=== PATIENT | male | born 1940 | race Caucasian/White ===

== ENCOUNTER 2017-08-06 17:06 | Observation (INO) | payer MEDICARE ==
[2017-08-06] MEDS ORDERED: Morphine 2 MG/ML Syringe IVPUSH PRN (19:03)
[2017-08-06] MEDS ORDERED: Ondansetron 4 MG/2 ML SDV IV PRN (19:03)
[2017-08-06] MEDS ORDERED: Docusate Sodium 100 MG Cap PO PRN (19:03)
--- NOTE | 2017-08-06 19:03 | EDM.PDOC ---
ED HPI GENERAL MEDICAL PROBLEM - General Stated Complaint: chest pain Time Seen by Provider: 08/06/17 17:06 Source of Information: Reports: Patient, Family History Limitations: Reports: No Limitations - History of Present Illness INITIAL COMMENTS - FREE TEXT/NARRATIVE: 77 years old w m with h/o CAD, had at 3 am cp, lasting a few min. Pt was pain fee till 2 pm, he went to the clinic and was noticed to have a SBP of 180 and a pulse ox or 81 on RA. He was give a nitro and O2 after which his symptoms normalized. His sBP was then 136and his O2 95% (pulse ox) on RA. His ECG did not show any acute ST/T wave changes and Troponin was 0.01. Pt was transfered to the ed for further care. On arrival, pt's BP was 136/76 puls 53 and pulse ox 100% on RA. Pt was entirely pain free while here in the ed. 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 Family was present. 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 [employer]ER: Reports: Aspirin, Nitroglycerin - Related Data Allergies Allergy/AdvReac Type Severity Reaction Status Date / Time No Known Allergies Allergy Verified 06/10/13 19:20 Home Meds: Home Meds Aspirin 81 mg PO DAILY 06/10/13 [History] Cholecalciferol (Vitamin D3) [Vitamin D3] 1,000 unit PO DAILY 05/12/15 [History] Clopidogrel [Plavix] 75 mg PO DAILY 05/12/15 [History] Cyanocobalamin (Vitamin B12) [Vitamin B12] 1,000 mcg PO DAILY 05/12/15 [History] Gluc 2KCl/Chondr/Lucia Hy/Hy Ac [Glucosamine & Chondroitin Cap] 1 each PO DAILY 05/12/15 [History] Indomethacin [Indocin] 50 mg PO DAILY PRN 05/12/15 [History] Multivitamin with Minerals [Multivitamins with Minerals] 1 each PO DAILY [History] Nitroglycerin [Nitrostat] 0.4 mg SL ASDIRECTED 05/12/15 [History] Lisinopril [Prinivil] 20 mg PO DAILY 08/06/17 [History] Omeprazole 20 mg PO DAILY 08/06/17 [History] Social & Family History - Tobacco Use Smoking Status *Q: Former Smoker Years of Tobacco use: 25 Used Tobacco, but Quit: Yes - Alcohol Use Days Per Week of Alcohol Use: 1 Number of Drinks Per Day: 1 Total Drinks Per Week: 1 - Recreational Drug Use Recreational Drug Use: No ED ROS GENERAL - Review of Systems Review Of Systems: See Below Constitutional: Reports: No Symptoms HEENT: Reports: No Symptoms Respiratory: Reports: No Symptoms Cardiovascular: Reports: No Symptoms Endocrine: Reports: No Symptoms GI/Abdominal: Reports: No Symptoms : Reports: No Symptoms Musculoskeletal: Reports: No Symptoms Skin: Reports: No Symptoms Neurological: Reports: No Symptoms Psychiatric: Reports: No Symptoms Hematologic/Lymphatic: Reports: No Symptoms Immunologic: Reports: No Symptoms ED EXAM, GENERAL - Physical Exam Exam: See Below Exam Limited By: No Limitations General Appearance: Alert, WD/WN, No Apparent Distress Eye Exam: Bilateral Eye: Normal Inspection Ears: Normal External Exam Ear Exam: Bilateral Ear: Auricle Normal Nose: Normal Inspection Throat/Mouth: Normal Inspection Head: Atraumatic, Normocephalic Neck: Normal Inspection Respiratory/Chest: No Respiratory Distress Cardiovascular: Normal Peripheral Pulses, Regular Rate, Rhythm, No Edema GI/Abdominal: Normal Bowel Sounds, Soft, Non-Tender (Male) Exam: Deferred Rectal (Males) Exam: Deferred Back Exam: Normal Inspection, Full Range of Motion Extremities: Normal Inspection, Normal Range of Motion, Non-Tender, No Pedal Edema Neurological: Alert, Oriented, CN II-XII Intact, Normal Cognition, Normal Gait Psychiatric: Normal Affect, Normal Mood Skin Exam: Warm, Dry, Intact, Normal Color, No Rash Lymphatic: No Adenopathy EKG INTERPRETATION EKG Date: 08/06/17 Time: 15:55 Rhythm: NSR Rate (Beats/Min): 59 [place]: Normal P-Wave: Present QRS: LBBB ST-T: Normal QT: Normal Comparison: NA - No Prior EKG Course - Vital Signs Text/Narrative:: 77 years old w m with h/o CAD, had at 3 am cp, lasting a few min. Pt was pain fee till 2 pm, he went to the clinic and was noticed to have a SBP of 180 and a pulse ox or 81 on RA. He was give a nitro and O2 after which his symptoms normalized. His sBP was then 136and his O2 95% (pulse ox) on RA. His ECG did not show any acute ST/T wave changes and Troponin was 0.01. Pt was transfered to the ed for further care. On arrival, pt's BP was 136/76 puls 53 and pulse ox 100% on RA. Pt was entirely pain free while here in the ed. 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 Family was present. PE: WNWD WF in no discomfort Labs: cbc bmp including troponin were nl at 1559 D Dimer was 735 Imaging: CXR NAD Angio chest: No Pulmonary emboli. 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 Pt has at 10.30 am an appointment with his pullboat engineer in [place]. Last Recorded V/S: Last Vital Signs Temp 36.6 C 08/07/17 00:00 Pulse 58 L 08/07/17 00:00 Resp 16 08/07/17 00:00 BP 146/69 H 08/07/17 00:00 Pulse Ox 97 08/07/17 00:00 - Orders/Labs/Meds Orders: Active Orders 24 hr Category Date Time Status Patient Status [ADT] Routine ADT 08/06/17 19:03 Active Cardiac Monitoring [RC] .As Directed Care 08/06/17 19:07 Active EKG Documentation Completion [RC] ASDIRECTED Care 08/06/17 19:11 Active Oxygen Therapy [RC] PRN Care 08/06/17 19:03 Active Up With Assistance [RC] ASDIRECTED Care 08/06/17 19:03 Active VTE/DVT Education [RC] Per Unit Routine Care 08/06/17 19:03 Active Vital Signs [RC] 00,04,08,12,16,20 Care 08/06/17 19:03 Active Heart Healthy Diet [DIET] Diet 08/06/17 Breakfast Ordered TROPONIN I [CHEM] Stat Lab 08/07/17 03:05 Received Docusate Sodium [Colace] Med 08/06/17 19:03 Active 100 mg PO BID PRN Morphine Med 08/06/17 19:03 Active 2 mg IVPUSH Q2H PRN Ondansetron [Zofran] Med 08/06/17 19:03 Active 4 mg IV Q4H PRN Sodium Chloride 0.9% [Saline Flush] Med 08/06/17 19:03 Active 10 ml FLUSH ASDIRECTED PRN Peripheral IV Insertion Adult [OM.PC] Routine Oth 08/06/17 19:03 Ordered Resuscitation Status Routine Resus Stat 08/06/17 19:03 Ordered EKG 12 Lead [EK] Routine Ther 08/06/17 21:00 Ordered EKG 12 Lead [EK] Urgent Ther 08/07/17 03:00 Ordered Medication Orders Docusate Sodium (Colace) 100 mg PO BID PRN PRN Reason: Constipation Influenza Virus Vaccine (Fluzone Quad ) 60 mcg IM .ONCE ONE Stop: 08/07/17 10:01 Morphine Sulfate (Morphine) 2 mg IVPUSH Q2H PRN PRN Reason: Pain (severe 7-10) Ondansetron HCl (Zofran) 4 mg IV Q4H PRN PRN Reason: Nausea/Vomiting Sodium Chloride (Saline Flush) 10 ml FLUSH ASDIRECTED PRN PRN Reason: Keep Vein Open Last Admin: 08/07/17 01:33 Dose: 10 ml Admin: 08/06/17 20:29 Dose: 10 ml Meds: Medications Generic Name Dose Route Start Last Admin Trade Name Freq PRN Reason Stop Dose Admin Docusate Sodium 100 mg 08/06/17 19:03 Colace PO BID PRN Constipation Influenza Virus Vaccine 60 mcg 08/07/17 10:00 Fluzone Quad IM 08/07/17 10:01 .ONCE ONE Morphine Sulfate 2 mg 08/06/17 19:03 Morphine IVPUSH Q2H PRN Pain (severe 7-10) Ondansetron HCl 4 mg 08/06/17 19:03 Zofran IV Q4H PRN Nausea/Vomiting Sodium Chloride 10 ml 08/06/17 19:03 08/07/17 01:33 Saline Flush FLUSH 10 ml ASDIRECTED PRN Administration Keep Vein Open Discontinued Medications Generic Name Dose Route Start Last Admin Trade Name Freq PRN Reason Stop Dose Admin Influenza Virus Vaccine 1 each 08/06/17 21:39 Pharmacy To Dose - Influenza Vaccine IM 08/06/17 21:40 ONETIME ONE Iopamidol 75 ml 08/07/17 01:56 08/07/17 02:17 Isovue-370 (76%) IV 08/07/17 01:57 75 ml ONETIME ONE Administration Departure - Departure Time of Disposition: 19:02 Disposition: Refer to Observation Condition: Fair Clinical Impression: Chest pain - My Orders Last 24 Hours: My Active Orders 08/06/17 19:03 Patient Status [ADT] Routine Oxygen Therapy [RC] PRN Up With Assistance [RC] ASDIRECTED VTE/DVT Education [RC] Per Unit Routine Vital Signs [RC] 00,04,08,12,16,20 Docusate Sodium [Colace] 100 mg PO BID PRN Morphine 2 mg IVPUSH Q2H PRN Ondansetron [Zofran] 4 mg IV Q4H PRN Sodium Chloride 0.9% [Saline Flush] 10 ml FLUSH ASDIRECTED PRN Peripheral IV Insertion Adult [OM.PC] Routine Resuscitation Status Routine 08/06/17 19:07 Cardiac Monitoring [RC] .As Directed 08/06/17 19:11 EKG Documentation Completion [RC] ASDIRECTED 08/06/17 21:00 EKG 12 Lead [EK] Routine 08/06/17 Breakfast Heart Healthy Diet [DIET] 08/07/17 03:00 EKG 12 Lead [EK] Urgent 08/07/17 03:05 TROPONIN I [CHEM] Stat - Assessment/Plan Last 24 Hours: My Active Orders 08/06/17 19:03 Patient Status [ADT] Routine Oxygen Therapy [RC] PRN Up With Assistance [RC] ASDIRECTED VTE/DVT Education [RC] Per Unit Routine Vital Signs [RC] 00,04,08,12,16,20 Docusate Sodium [Colace] 100 mg PO BID PRN Morphine 2 mg IVPUSH Q2H PRN Ondansetron [Zofran] 4 mg IV Q4H PRN Sodium Chloride 0.9% [Saline Flush] 10 ml FLUSH ASDIRECTED PRN Peripheral IV Insertion Adult [OM.PC] Routine Resuscitation Status Routine 08/06/17 19:07 Cardiac Monitoring [RC] .As Directed 08/06/17 19:11 EKG Documentation Completion [RC] ASDIRECTED 08/06/17 21:00 EKG 12 Lead [EK] Routine 08/06/17 Breakfast Heart Healthy Diet [DIET] 08/07/17 03:00 EKG 12 Lead [EK] Urgent 08/07/17 03:05 TROPONIN I [CHEM] Stat
[2017-08-06] MEDS: Sodium Chloride 0.9% 10 ML Syringe FLUSH PRN (20:29)
[2017-08-07] MEDS: Sodium Chloride 0.9% 10 ML Syringe FLUSH PRN (01:33)
[2017-08-07] MEDS ORDERED: Iopamidol 755 Mg/ML 75 ML Bottle IV ONE (01:56)
--- NOTE | 2017-08-07 08:21 | PCM.SN ---
- Free Text/Narrative Note: Patient is O2 sats all night were normal. Blood pressure was mildly high but nothing remarkable. No chest pain and serial enzymes 2 were negative. Discharged home in the he has a cardiology appointment today.
--- NOTE | 2017-08-07 08:21 | PCM.HP ---
H&P History of Present Illness - General Date of Service: 08/07/17 Source of Information: Patient History Limitations: Reports: No Limitations - History of Present Illness Initial Comments - Free Text/Narative: This is a 76-year-old male patient has been having elevated blood pressure for the last 2 weeks. He states he increase his blood pressure to twice a day. He says that was okay by Dr. Wu. He was seen in the clinic in the checked his O2 sat which was 80%. He was sent over to the hospital. He stated he had a little chest pain in the morning that was down left lower ribs that was sharp and intermittent. Did not radiate anywhere. Doesn't history coronary artery disease. Does have appointment with cardiology today. He had 2 enzymes that were negative. Overnight he had no symptoms. No shortness of breath. He does state that for the last 5 months when he walks but 100 [place] short of breath this done. Denies chest pain. CT chest last night was negative for pneumonia or PE. She does state these haven't some leg swelling bilaterally. He denies orthopnea or PND - Related Data Allergies/Adverse Reactions: Allergies Allergy/AdvReac Type Severity Reaction Status Date / Time No Known Allergies Allergy Verified 06/10/13 19:20 Home Medications: Home Meds Aspirin 81 mg PO DAILY 06/10/13 [History] Cholecalciferol (Vitamin D3) [Vitamin D3] 1,000 unit PO DAILY 05/12/15 [History] Clopidogrel [Plavix] 75 mg PO DAILY 05/12/15 [History] Cyanocobalamin (Vitamin B12) [Vitamin B12] 1,000 mcg PO DAILY 05/12/15 [History] Gluc 2KCl/Chondr/Lucia Hy/Hy Ac [Glucosamine & Chondroitin Cap] 1 each PO DAILY 05/12/15 [History] Indomethacin [Indocin] 50 mg PO DAILY PRN 05/12/15 [History] Multivitamin with Minerals [Multivitamins with Minerals] 1 each PO DAILY [History] Nitroglycerin [Nitrostat] 0.4 mg SL ASDIRECTED 05/12/15 [History] Lisinopril [Prinivil] 20 mg PO DAILY 08/06/17 [History] Omeprazole 20 mg PO DAILY 08/06/17 [History] Past Medical History HEENT History: Reports: Hard of Hearing, Impaired Vision Other HEENT History: yaneli hearing aid Cardiovascular History: Reports: Hypertension, SOB on Exertion, Stents Respiratory History: Reports: Intubation, Difficult, SOB Gastrointestinal History: Reports: Other (See Below) Other Gastrointestinal History: had hemorrhoid surgery Genitourinary History: Reports: None Musculoskeletal History: Reports: Arthritis, Back Pain, Chronic, Neck Pain, Chronic Neurological History: Reports: None Psychiatric History: Reports: None Endocrine/Metabolic History: Reports: None Hematologic History: Reports: None Immunologic History: Reports: None Oncologic (Cancer) History: Reports: None Dermatologic History: Reports: None - Infectious Disease History Infectious Disease History: Reports: Chicken Pox, Measles, Mumps, Shingles - Past Surgical History Head Surgeries/Procedures: Reports: None HEENT Surgical History: Reports: None Cardiovascular Surgical History: Reports: Coronary Artery Stent, Other (See Below) Other Cardiovascular Surgeries/Procedures: jun 2013 stents Respiratory Surgical History: Reports: None GI Surgical History: Reports: None Male Surgical History: Reports: None Endocrine Surgical History: Reports: None Neurological Surgical History: Reports: None Musculoskeletal Surgical History: Reports: Knee Replacement, Shoulder Surgery, Other (See Below) Other Musculoskeletal Surgeries/Procedures:: Rt knee replacement, left shoulder surgery Oncologic Surgical History: Reports: None Dermatological Surgical History: Reports: None Social & Family History - Family History Family Medical History: Noncontributory - Tobacco Use Smoking Status *Q: Former Smoker Years of Tobacco use: 25 Used Tobacco, but Quit: Yes Month Tobacco Last Used: february 1982 Second Hand Smoke Exposure: No - Caffeine Use Caffeine Use: Reports: Coffee, Tea - Alcohol Use Days Per Week of Alcohol Use: 1 Number of Drinks Per Day: 1 Total Drinks Per Week: 1 Date of Last Drink: 08/03/17 Time of Last Drink: 20:00 - Recreational Drug Use Recreational Drug Use: No H&P Review of Systems - Review of Systems: Review Of Systems: See Below General: Reports: No Symptoms HEENT: Reports: No Symptoms Pulmonary: Reports: No Symptoms Cardiovascular: Reports: Chest Pain Gastrointestinal: Reports: No Symptoms Genitourinary: Reports: No Symptoms Musculoskeletal: Reports: No Symptoms Skin: Reports: No Symptoms Psychiatric: Reports: No Symptoms Neurological: Reports: No Symptoms Hematologic/Lymphatic: Reports: No Symptoms Immunologic: Reports: No Symptoms Exam - Exam Exam: See Below - Vital Signs Vital Signs: Last Vital Signs Temp 97.4 F 08/07/17 04:00 Pulse 62 08/07/17 04:00 Resp 16 08/07/17 04:00 BP 142/75 H 08/07/17 04:00 Pulse Ox 97 08/07/17 04:00 Weight: 200 lb 9.6 oz - Exam Quality Assessment: No: Supplemental Oxygen General: Alert, Oriented, Cooperative HEENT: Hearing Intact, Mucosa Moist & [place], Posterior Pharynx Clear, TMs Clear Neck: Supple, Trachea Midline, Carotid Bruit. No: JVD Lungs: Clear to Auscultation, Normal Respiratory Effort. No: Crackles, Rales, Rhonchi Cardiovascular: Regular Rate, Regular Rhythm, Normal S1, Normal S2. No: Systolic Murmur, Diastolic Murmur GI/Abdominal Exam: Normal Bowel Sounds, Soft, Non-Tender, No Organomegaly, No Distention, No Abnormal Bruit, No Mass Back Exam: Normal Inspection Extremities: Non-Tender, No Pedal Edema Skin: Warm, Dry, Intact Neurological: Strength Equal Bilateral, Normal Speech, Normal Tone Neuro Extensive - Mental Status: Alert, Oriented x3, Normal Mood/Affect - Patient Data Lab Results Last 24 hrs: Laboratory Results - last 24 hr 08/06/17 08/06/17 08/07/17 Range/Units 21:08 21:08 03:05 D-Dimer, Quantitative 731 H (100-400) ng/mL Troponin I < 0.017 L < 0.017 L (<0.017-0.056) ng/mL EKG INTERPRETATION EKG Interpretation Comments: Left bundle branch block. *Q Meaningful Use (ADM) - VTE *Q VTE Criteria *Q: - Stroke *Q Stroke Criteria *Q: - AMI *Q AMI Criteria *Q: - Problem List (1) Hypertension SNOMED Code(s): 98232766 ICD Code: I10 - ESSENTIAL (PRIMARY) HYPERTENSION Status: Acute Current Visit: Yes (2) Chest pain SNOMED Code(s): 82164017 ICD Code: R07.9 - CHEST PAIN, UNSPECIFIED Status: Acute Current Visit: Yes Problem List Initiated/Reviewed/Updated: Yes Orders Last 24hrs: Active Orders 24 hr Category Date Time Status Ang Chest [CT] Routine Exams 08/07/17 01:06 Taken FLU Vacc [id number] 36Mos UP/PF [Fluzone Quad [id number]] Med 08/07/17 10:00 Once 60 mcg IM .ONCE ONE Medication Orders Docusate Sodium (Colace) 100 mg PO BID PRN PRN Reason: Constipation Influenza Virus Vaccine (Fluzone Quad ) 60 mcg IM .ONCE ONE Stop: 08/07/17 10:01 Morphine Sulfate (Morphine) 2 mg IVPUSH Q2H PRN PRN Reason: Pain (severe 7-10) Ondansetron HCl (Zofran) 4 mg IV Q4H PRN PRN Reason: Nausea/Vomiting Sodium Chloride (Saline Flush) 10 ml FLUSH ASDIRECTED PRN PRN Reason: Keep Vein Open Last Admin: 08/07/17 01:33 Dose: 10 ml Admin: 08/06/17 20:29 Dose: 10 ml Assessment/Plan Comment:: 1. Patient was admitted for observation. 2. Regular home medications. 3. Monitor oxygen. 4. Up ad alina. 5. Serial enzymes. 6. CT of the chest was unremarkable.
--- NOTE | 2017-08-07 08:25 | PCM.DCSUM1 ---
Discharge Summary - Hospital Course HPI Initial Comments: Hospital course-patient was admitted overnight for observation. His O2 sats remained in the mid 90s on no oxygen. Blood pressures were mildly high but nothing significant. He had no episodes of chest pain. His enzymes [address] the chest showed no PE or pneumonia. Patient states she's been having shortness of breath with exertion about 100 yards. He has a cardiology appointment today. He has a history coronary artery disease with a history of stent 4 years ago. Have him follow-up with cardiology today. Brief History: This is a 76-year-old male patient has been having elevated blood pressure for the last 2 weeks. He states he increase his blood pressure to twice a day. He says that was okay by Dr. Wu. He was seen in the clinic in the checked his O2 sat which was 80%. He was sent over to the hospital. He stated he had a little chest pain in the morning that was down left lower ribs that was sharp and intermittent. Did not radiate anywhere. Doesn 't history coronary artery disease. Does have appointment with cardiology today. He had 2 enzymes that were negative. Overnight he had no symptoms. No shortness of breath. He does state that for the last 5 months when he walks but 100 [place] short of breath this done. Denies chest pain. CT chest last night was negative for pneumonia or PE. She does state these haven't some leg swelling bilaterally. He denies orthopnea or PND - Discharge Data Discharge Date: 08/07/17 Discharge Disposition: Home, Self-Care 01 Condition: Fair - Discharge Diagnosis/Problem(s) (1) Hypertension SNOMED Code(s): 68026324 ICD Code: I10 - ESSENTIAL (PRIMARY) HYPERTENSION Status: Acute Current Visit: Yes (2) Chest pain SNOMED Code(s): 11284036 ICD Code: R07.9 - CHEST PAIN, UNSPECIFIED Status: Acute Current Visit: Yes - Patient Instructions Diet: Heart Healthy Diet Activity: As Tolerated Driving: May Drive Today Showering/Bathing: May Shower Other/Special Instructions: 1. Patient has a plate with cardiology 10:30 AM. I think this is very important that he makes this will get him discharge. 2. Please copy labs, CT scan report, EKGs for his cardiology appointment. 3. Recheck with Dr. Wu 7-10 days. - Discharge Plan Home Medications: Home Meds Aspirin 81 mg PO DAILY 06/10/13 [History] Cholecalciferol (Vitamin D3) [Vitamin D3] 1,000 unit PO DAILY 05/12/15 [History] Clopidogrel [Plavix] 75 mg PO DAILY 05/12/15 [History] Cyanocobalamin (Vitamin B12) [Vitamin B12] 1,000 mcg PO DAILY 05/12/15 [History] Gluc 2KCl/Chondr/Lucia Hy/Hy Ac [Glucosamine & Chondroitin Cap] 1 each PO DAILY 05/12/15 [History] Indomethacin [Indocin] 50 mg PO DAILY PRN 05/12/15 [History] Multivitamin with Minerals [Multivitamins with Minerals] 1 each PO DAILY [History] Nitroglycerin [Nitrostat] 0.4 mg SL ASDIRECTED 05/12/15 [History] Lisinopril [Prinivil] 20 mg PO DAILY 08/06/17 [History] Omeprazole 20 mg PO DAILY 08/06/17 [History] Forms: ED Department Discharge Referrals: Ace Bauer DO [Primary Care Provider] - - Discharge Summary/Plan Comment DC Time >30 min.: No - Patient Data Vitals - Most Recent: Last Vital Signs Temp 97.4 F 08/07/17 04:00 Pulse 62 08/07/17 04:00 Resp 16 08/07/17 04:00 BP 142/75 H 08/07/17 04:00 Pulse Ox 97 08/07/17 04:00 Weight - Most Recent: 200 lb 9.6 oz Lab Results - Last 24 hrs: Laboratory Results - last 24 hr 08/06/17 08/06/17 08/07/17 Range/Units 21:08 21:08 03:05 D-Dimer, Quantitative 731 H (100-400) ng/mL Troponin I < 0.017 L < 0.017 L (<0.017-0.056) ng/mL Med Orders - Current: Current Medications Docusate Sodium (Colace) 100 mg PO BID PRN PRN Reason: Constipation Influenza Virus Vaccine (Fluzone Quad [id number]) 60 mcg IM .ONCE ONE Stop: 08/07/17 10:01 Morphine Sulfate (Morphine) 2 mg IVPUSH Q2H PRN PRN Reason: Pain (severe 7-10) Ondansetron HCl (Zofran) 4 mg IV Q4H PRN PRN Reason: Nausea/Vomiting Sodium Chloride (Saline Flush) 10 ml FLUSH ASDIRECTED PRN PRN Reason: Keep Vein Open Last Admin: 08/07/17 01:33 Dose: 10 ml Discontinued Medications Influenza Virus Vaccine (Pharmacy To Dose - Influenza Vaccine) 1 each IM ONETIME ONE Stop: 08/06/17 21:40 Iopamidol (Isovue-370 (76%)) 75 ml IV ONETIME ONE Stop: 08/07/17 01:57 Last Admin: 08/07/17 02:17 Dose: 75 ml *Q Meaningful Use (DIS) - VTE *Q VTE Criteria *Q: - Stroke *Q Stroke Criteria *Q: - AMI *Q AMI Criteria *Q:
[2017-08-07 09:43] VITALS: BP 159/87
[2017-08-07] MEDS ORDERED: FLU Vacc QS 2017-18 (36mos UP)/PF 60 MCG/0.5 ML Syringe IM ONE (10:00)
== END 2017-08-07 09:00 | disposition home or self-care (01) ==
LOC: FB.ED 17:06 → FB.MS 20:31
PROVIDERS: ADMIT Emergency Medicine; ATTEND Family Medicine
DX: R07.9 Chest pain, unspecified (principal); I10 Essential (primary) hypertension; I25.10 Atherosclerotic heart disease of native coronary artery without angina pectoris; M19.90 Unspecified osteoarthritis, unspecified site; Z95.5 Presence of coronary angioplasty implant and graft; Z79.82 Long term (current) use of aspirin; Z79.899 Other long term (current) drug therapy; Z79.02 Long term (current) use of antithrombotics/antiplatelets; Z96.651 Presence of right artificial knee joint; Z98.890 Other specified postprocedural states; Z87.891 Personal history of nicotine dependence
CPT/HCPCS: 36415; 71275; 84484; 85379; 93005; 99283; G0378; J7050; Q9967; 99217; 99219

== ENCOUNTER 2018-10-02 06:25 | Day surgery (SDC) | payer MEDICARE ==
[2018-10-02] MEDS ORDERED: Lidocaine 2% 100 MG/5 ML Syringe IVPUSH ONE (06:26)
[2018-10-02] MEDS ORDERED: Propofol 200 MG/20 ML SDV IV ONE (06:26)
[2018-10-02] MEDS ORDERED: Lactated Ringers 1,000 ML IV SCH (06:30)
--- NOTE | 2018-10-02 07:53 | PCM.OPNOTE ---
- General Post-Op/Procedure Note Date of Surgery/Procedure: 10/02/18 Operative Procedure(s): egd with bx Findings: gastroduodenitis irregular z line Pre Op Diagnosis: dysphagia. hx of Huntley's Post-Op Diagnosis: gastroduodenitis. Huntley's esophagitis Anesthesia Technique: [facility] [place] Primary Surgeon: Alfonso Salcedo Anesthesia Provider: Christ Gandhi Pathology: stomach duodenum distal esophagus Complications: None Condition: Good Free Text/Narrative:: see dictation
[2018-10-02 08:33] VITALS: BP 140/63
--- NOTE | 2018-10-02 12:45 | OR ---
DATE OF OPERATION: 10/02/2018 SURGEON: Alfonso Salcedo MD PROCEDURE PERFORMED: Upper endoscopy with cold forceps biopsy. PREOPERATIVE DIAGNOSES: History of Huntley's esophagitis, gastroesophageal reflux disease, and some dysphagia. POSTOPERATIVE DIAGNOSES: Gastroduodenitis and Huntley's. INDICATIONS FOR PROCEDURE: This 77-year-old white male has a known history of GERD with some very mild Huntley's esophagitis, presented recently with a complaint of some worsening epigastric abdominal pain as well as some increasing dysphagia. His last upper endoscopy was several years ago. He was offered and accepted an EGD. DESCRIPTION OF PROCEDURE: After an excellent LMA anesthetic was administered, the bite block was inserted. The flexible endoscope was passed without difficulty down the patient's esophagus into the stomach. Stomach was insufflated. Scope was passed through the pylorus to the second portion of duodenum and slowly withdrawn. The following findings were noted: First portion of the duodenum, some mild irritation, photo and biopsies were taken. Stomach, some very mild gastritis noted. Biopsies and photos taken. GE junction, there were two tongues of what appeared to be intestinal metaplasia. No marked stricture. No marked erythema noted. Biopsies were taken of what appeared to be the metaplasia. Remainder of the esophageal exam was unremarkable. The patient tolerated the procedure well and was taken to recovery room. Results by letter. /[id number] /MODL
== END 2018-10-02 08:52 | disposition home or self-care (01) ==
LOC: FB.SDS 06:25
PROVIDERS: ATTEND Surgery
DX: K29.30 Chronic superficial gastritis without bleeding (principal); K29.80 Duodenitis without bleeding; K21.0 Gastro-esophageal reflux disease with esophagitis; K22.70 Barrett's esophagus without dysplasia; I10 Essential (primary) hypertension; E78.5 Hyperlipidemia, unspecified; Z87.891 Personal history of nicotine dependence; Z79.02 Long term (current) use of antithrombotics/antiplatelets
CPT/HCPCS: 00731-QZ; 88305; 88313; 88342; J2001; J2704; J7120

== ENCOUNTER 2022-10-23 08:59 | Day surgery (SDC) | payer MEDICARE ==
[2022-10-23] MEDS ORDERED: fentaNYL 100 MCG/2 ML SDV IV ONE (09:00)
[2022-10-23] MEDS ORDERED: Midazolam 1 MG/ML 2 ML SDV IV ONE (09:00)
[2022-10-23] MEDS ORDERED: Sodium Chloride 0.9% 10 ML Syringe FLUSH PRN (09:00)
[2022-10-23] MEDS ORDERED: Lactated Ringers 1,000 ML IV PRN (09:00)
[2022-10-23] MEDS ORDERED: acetaZOLAMIDE 500 MG Cap.ER PO ONE (11:00)
[2022-10-23 11:12] VITALS: BP 148/70; PULSE 56
== END 2022-10-23 11:20 | disposition home or self-care (01) ==
LOC: FB.SDS 08:59
PROVIDERS: ATTEND Ophthalmology
DX: H26.9 Unspecified cataract (principal); I10 Essential (primary) hypertension; K21.9 Gastro-esophageal reflux disease without esophagitis; I25.10 Atherosclerotic heart disease of native coronary artery without angina pectoris; C18.9 Malignant neoplasm of colon, unspecified; E78.5 Hyperlipidemia, unspecified; M10.9 Gout, unspecified; E66.9 Obesity, unspecified; I44.7 Left bundle-branch block, unspecified; Z79.899 Other long term (current) drug therapy; Z79.82 Long term (current) use of aspirin; Z98.890 Other specified postprocedural states; Z91.018 Allergy to other foods; Z88.8 Allergy status to other drugs, medicaments and biological substances; Z87.891 Personal history of nicotine dependence; Z68.28 Body mass index [BMI] 28.0-28.9, adult
CPT/HCPCS: 00142; A9270-GY; J2250; J3010; V2632

== ENCOUNTER 2022-12-04 07:34 | Day surgery (SDC) | payer MEDICARE ==
[~2022-12-04 07:34] MED LIST: Lactated Ringers 1,000 ML IV PRN; Sodium Chloride 0.9% 10 ML Syringe FLUSH PRN
[2022-12-04] MEDS ORDERED: Sodium Chloride 0.9% 10 ML Syringe IV ONE (07:35)
[2022-12-04] MEDS ORDERED: Midazolam 1 MG/ML 2 ML SDV IV ONE (07:35)
[2022-12-04] MEDS ORDERED: fentaNYL 100 MCG/2 ML SDV IV ONE (07:35)
[2022-12-04] MEDS ORDERED: acetaZOLAMIDE 500 MG Cap.ER PO ONE (09:30)
[2022-12-04 10:32] VITALS: BP 138/63; PULSE 64
== END 2022-12-04 10:27 | disposition home or self-care (01) ==
LOC: FB.SDS 07:34
PROVIDERS: ATTEND Ophthalmology
DX: H25.813 Combined forms of age-related cataract, bilateral (principal); K21.9 Gastro-esophageal reflux disease without esophagitis; M10.9 Gout, unspecified; E78.5 Hyperlipidemia, unspecified; I10 Essential (primary) hypertension; I25.10 Atherosclerotic heart disease of native coronary artery without angina pectoris; Z79.899 Other long term (current) drug therapy; Z91.048 Other nonmedicinal substance allergy status; Z91.018 Allergy to other foods; Z87.891 Personal history of nicotine dependence
CPT/HCPCS: 00142; A9270-GY; J2250; J3010; J3490; V2632

== ENCOUNTER 2025-07-15 16:53 | Emergency (ER) | payer MEDICARE ==
[2025-07-15 17:47] LABS: BASOPHILS ABSOLUTE AUTO 0.1 x10-3/uL (0.0-0.3); BASOPHILS PERCENT AUTO 1.3 % (0.3-3.8); EOSINOPHILS ABSOLUTE AUTO 0.4 x10-3/uL (0.0-0.6); EOSINOPHILS PERCENT AUTO 6.1 % (0.1-6.8); LYMPHOCYTES ABSOLUTE AUTO 1.6 x10-3/uL (0.5-4.5); LYMPHOCYTES PERCENT AUTO 23.2 % (15.8-45.3); MEAN PLATELET VOLUME 7.7 fL (6.7-11.0); MONOCYTES ABSOLUTE AUTO 0.6 x10-3/uL (0.0-1.2); MONOCYTES PERCENT AUTO 7.9 % (5.5-15.2); NEUTROPHILS ABSOLUTE AUTO 4.3 x10-3/uL (1.7-6.9); NEUTROPHILS PERCENT AUTO 61.5 % (40.3-71.8); PLATELET COUNT,PLT 234 x10(3)uL (117-477); RED CELL DISTRIBUTION WIDTH 16.2 % (12.4-15.0); WHITE BLOOD CELL COUNT,WBC 7.1 x10-3/uL (3.2-10.1)
[2025-07-15 17:58] LABS: BLOOD UREA NITROGEN,BUN 21 mg/dL (7-18); CARBON DIOXIDE,CO2 26 mmol/L (21-32); CHLORIDE,CL 109 mmol/L (100-110); CREATININE 1.1 mg/dL (0.70-1.30); EST CRCL DRUG DOSING (CG) 51.62 mL/min; ESTIMATED GFR 66 mL/min (>60); GLUCOSE RANDOM 92 mg/dL (80-116); POTASSIUM,K 4.2 mmol/L (3.5-5.3); SODIUM,NA 143 mmol/L (135-145)
[2025-07-15 18:03] LABS: A/G RATIO 0.9; ALANINE AMINOTRANSFERASE,ALT 19 U/L (12-36); ASPARTATE AMNIOTRANSFERASE,AST 19 IU/L (5-25); BILIRUBIN TOTAL 0.6 mg/dL (0.1-1.3); PROTEIN TOTAL,TP 7.0 g/dL (6.0-8.0)
[2025-07-15 18:11] LABS: RED BLOOD CELL COUNT 4.71 x10(6)uL (3.90-5.90)
[2025-07-15 19:31] VITALS: BP 169/84; PULSE 58
== END 2025-07-15 18:25 | disposition home or self-care (01) ==
LOC: FB.ED 16:53
DX: I16.9 Hypertensive crisis, unspecified (principal); I44.7 Left bundle-branch block, unspecified; I25.10 Atherosclerotic heart disease of native coronary artery without angina pectoris; E78.00 Pure hypercholesterolemia, unspecified; K21.9 Gastro-esophageal reflux disease without esophagitis; Z91.018 Allergy to other foods; Z88.8 Allergy status to other drugs, medicaments and biological substances; Z79.82 Long term (current) use of aspirin; Z79.899 Other long term (current) drug therapy
CPT/HCPCS: 36415; 80053; 84484; 85025; 93005; 99283